=== PATIENT | female | born 1980 | race Caucasian/White ===

== ENCOUNTER → 2016-06-22 | Outpatient (CLI) | payer OTHER ==
[~2016-06-22] MED LIST: FLEXERIL10 MG PO; KEFLEX500 MG PO; KENALOG,ARISTOC80 G1 TP; LISINOPRIL20 MG PO; MEDROL DOSEPAK4 MG PO; METFORMIN HCL500 MG PO; MOTRIN800 MG PO; PERCOCET 10/1 TABLET PO; PERCOCET 5/31 TABLET PO; SKELAXIN800 MG PO; VALIUM2 MG PO
== END | disposition home or self-care (01) ==
DX: R13.14 Dysphagia, pharyngoesophageal phase (principal)
CPT/HCPCS: 92611 GN

== ENCOUNTER 2016-07-16 00:39 | Emergency (ER) | payer OTHER ==
[~2016-07-16] VITALS: Ht 154.9 cm; Wt 123.9 kg
[2016-07-16] MEDS ORDERED: CLEOCIN300 MG PO (01:01)
[2016-07-16 01:12] VITALS: BP 129/97
== END 2016-07-16 01:01 | disposition home or self-care (01) ==
LOC: EXP 00:39 → EME 00:39 → EXP 01:01
DX: J34.0 Abscess, furuncle and carbuncle of nose (principal); E11.9 Type 2 diabetes mellitus without complications; Z79.84 Long term (current) use of oral hypoglycemic drugs
CPT/HCPCS: 99281; 99283

== ENCOUNTER 2016-08-11 17:46 | Emergency (ER) | payer OTHER ==
[~2016-08-11] VITALS: Ht 154.9 cm; Wt 116.8 kg
[~2016-08-11 17:46] MED LIST changes: +CLEOCIN300 MG PO
[2016-08-11 18:34] LABS: ADD MIUA? YES; BILIRUBIN NEGATIVE; BLOOD NEGATIVE; COLOR YELLOW ((YELLOW)); GLUCOSE (STRIP) NEGATIVE; INTERNAL CONTROL VALID? YES; KETONES 5; LEUKOCYTES TRACE; NITRITE NEGATIVE; PROTEIN (STRIP) NEGATIVE; SPECIFIC GRAVITY 1.027 (1.000-1.030); UROBILINOGEN 0.2 MG/DL (0.2-1.0)
[2016-08-11 18:42] LABS: BACTERIA NONE SEEN /HPF; CALCIUM OXALATE CRYSTALS 2+ /HPF; EPITHELIAL CELLS RARE /HPF; MUCUS 1+ /LPF; UCUL ADDED? NO; WHITE BLOOD CELLS 0-5 /HPF (0-5)
[2016-08-11 20:29] LABS: HEMATOCRIT 34.3 % (36.0-46.0); MCH 25.2 PG (29.0-34.0); MCHC 31.5 G/DL (30.0-36.0); MCV 80.1 FL (83-99); MEAN PLAT.VOLUME 10.3 uM^3 (9.5-12.4); PLATELET COUNT 277 K/uL (156-360); RBC DIS.WIDTH-CV 14.1 % (11.8-14.6); RBC DIS.WIDTH-SD 40.6 % (39-53); RED BLOOD COUNT 4.28 M/uL (3.80-5.20); WHITE BLOOD COUNT 7.2 K/uL (4.1-10.2)
[2016-08-11 20:37] LABS: CHLORIDE 112 mEq/L (99-109); POTASSIUM 3.6 mEq/L (3.7-5.4); SODIUM 140 mEq/L (136-147)
[2016-08-11 20:39] LABS: GLUCOSE 100 mg/dL (70-99)
[2016-08-11 20:40] LABS: ANION GAP 9 MEQ/L (2-14)
[2016-08-11 20:41] LABS: TOTAL BILIRUBIN 0.3 mg/dL (0.0-1.0)
[2016-08-11 20:43] LABS: ALKALINE PHOSPHATASE 80 IU/L (3-129); GFR ESTIMATE (CALCULATED) > 59 mL/min/
[2016-08-11 20:44] LABS: UREA NITROGEN (BUN) 11 mg/dL (9-23)
[2016-08-11] MEDS ORDERED: FLOMAX0.4 MG PO (21:41)
[2016-08-11] MEDS ORDERED: PERCOCET 5/31 TABLET PO (21:41)
[2016-08-11] MEDS ORDERED: ZOFRAN ODT4 MG PO (21:41)
[2016-08-11 21:52] VITALS: BP 132/94
== END 2016-08-11 21:57 | disposition home or self-care (01) ==
LOC: RME 17:46 → EME 17:46 → RME 21:57
PROVIDERS: Physician Assistant
DX: N20.1 Calculus of ureter (principal); R93.5 Abnormal findings on diagnostic imaging of other abdominal regions, including retroperitoneum; E11.9 Type 2 diabetes mellitus without complications; I10 Essential (primary) hypertension; Z79.84 Long term (current) use of oral hypoglycemic drugs
CPT/HCPCS: 74176; 80053; 81003; 84703; 85027; 99281; 99284

== ENCOUNTER 2016-10-16 01:18 | Emergency (ER) | payer OTHER ==
[~2016-10-16] VITALS: Ht 152.4 cm; Wt 115.3 kg
[~2016-10-16 01:18] MED LIST changes: +FLOMAX0.4 MG PO; +ZOFRAN ODT4 MG PO
[2016-10-16 03:07] LABS: EOSINOPHIL (%) 1.7 % (0-5); EOSINOPHIL COUNT 0.1 K/uL (0-0.3); HEMATOCRIT 28.8 % (36.0-46.0); IMMATURE GRANULOCYTE (%) 0.3 % (0.0-0.7); INSTRUMENT ABS NEUTROPHIL CT 3.9 K/uL; LYMPHOCYTE COUNT 2.6 K/uL (1.0-2.8); MCHC 30.6 G/DL (30.0-36.0); MCV 78.5 FL (83-99); MEAN PLAT.VOLUME 9.8 uM^3 (9.5-12.4); MONOCYTE (%) 6.8 % (3-12); MONOCYTE COUNT 0.5 K/uL (0-0.8); NEUTROPHIL (%) 54.9 % (45-76); NEUTROPHIL COUNT 3.9 K/uL (1.8-6.4); PLATELET COUNT 280 K/uL (156-360); RBC DIS.WIDTH-CV 14.9 % (11.8-14.6); RBC DIS.WIDTH-SD 42.3 % (39-53); RED BLOOD COUNT 3.67 M/uL (3.80-5.20); WHITE BLOOD COUNT 7.2 K/uL (4.1-10.2)
[2016-10-16 03:18] LABS: CHLORIDE 107 mEq/L (99-109); POTASSIUM 3.2 mEq/L (3.7-5.4); SODIUM 138 mEq/L (136-147)
[2016-10-16 03:20] LABS: GLUCOSE 135 mg/dL (70-99)
[2016-10-16 03:22] LABS: ANION GAP 9 MEQ/L (2-14); TOTAL BILIRUBIN 0.2 mg/dL (0.0-1.0)
[2016-10-16 03:24] LABS: ALKALINE PHOSPHATASE 86 IU/L (3-129); GFR ESTIMATE (CALCULATED) > 59 mL/min/
[2016-10-16 03:25] LABS: UREA NITROGEN (BUN) 12 mg/dL (9-23)
[2016-10-16 03:26] LABS: DIRECT BILIRUBIN 0.1 mg/dL (0.0-0.3)
[2016-10-16 03:28] LABS: LIPASE 8 U/L (1.0-51.0)
[2016-10-16 03:34] LABS: QUANTITATIVE HCG < 4.0 MIU/ML
[2016-10-16 04:35] LABS: ADD MIUA? YES; BILIRUBIN NEGATIVE; BLOOD MODERATE; COLOR YELLOW ((YELLOW)); GLUCOSE (STRIP) NEGATIVE; KETONES NEGATIVE; LEUKOCYTES MODERATE; NITRITE POSITIVE; PROTEIN (STRIP) 30; SPECIFIC GRAVITY 1.023 (1.000-1.030); UROBILINOGEN 0.2 MG/DL (0.2-1.0)
[2016-10-16 05:10] LABS: EPITHELIAL CELLS 3+ /HPF; RED BLOOD CELLS 0-5 /HPF (0-5)
[2016-10-16 05:11] LABS: BACTERIA 4+ /HPF; MUCUS NONE SEEN /LPF; UCUL ADDED? YES
[2016-10-16] MEDS ORDERED: TRAMADOL HCL50 MG PO (06:27)
[2016-10-16] MEDS ORDERED: BACTRIM,SEPT1 TABLET PO (06:27)
[2016-10-16 06:39] VITALS: BP 144/72
[2016-10-16 11:34] LABS: CHLAMYDIA TRACHOMATIS NEGATIVE; NEISSERIA GONORRHOEAE NEGATIVE
== END 2016-10-16 06:38 | disposition home or self-care (01) ==
LOC: EME 01:18
PROVIDERS: Emergency Medicine
DX: N10 Acute pyelonephritis (principal); N70.11 Chronic salpingitis; I10 Essential (primary) hypertension; E11.9 Type 2 diabetes mellitus without complications; Z79.84 Long term (current) use of oral hypoglycemic drugs; K21.9 Gastro-esophageal reflux disease without esophagitis; Z87.442 Personal history of urinary calculi; Z98.51 Tubal ligation status
CPT/HCPCS: 74176; 76856; 80048; 80076; 81003; 83690; 84702; 85025; 87077; 87086; 87186; 87210; 87491; 87591; 99281; 99284

== ENCOUNTER 2016-11-21 13:39 | Emergency (ER) | payer OTHER ==
[~2016-11-21] VITALS: Ht 152.4 cm; Wt 112.9 kg
[~2016-11-21 13:39] MED LIST changes: +BACTRIM,SEPT1 TABLET PO; +TRAMADOL HCL50 MG PO
[2016-11-21 17:53] LABS: CHLORIDE 109 mEq/L (99-109); POTASSIUM 3.6 mEq/L (3.7-5.4); SODIUM 138 mEq/L (136-147)
[2016-11-21 17:55] LABS: D-DIMER ELISA < 150.00 ng/mLDDU (<230); GLUCOSE 86 mg/dL (70-99)
[2016-11-21 17:56] LABS: ANION GAP 8 MEQ/L (2-14)
[2016-11-21 17:59] LABS: GFR ESTIMATE (CALCULATED) > 59 mL/min/
[2016-11-21 18:00] LABS: UREA NITROGEN (BUN) 11 mg/dL (9-23)
[2016-11-21 18:02] LABS: HEMATOCRIT 31.7 % (36.0-46.0); MCH 23.7 PG (29.0-34.0); MCHC 30.6 G/DL (30.0-36.0); MCV 77.3 FL (83-99); MEAN PLAT.VOLUME 10.6 uM^3 (9.5-12.4); PLATELET COUNT 336 K/uL (156-360); RBC DIS.WIDTH-CV 15.1 % (11.8-14.6); RBC DIS.WIDTH-SD 42.1 % (39-53); WHITE BLOOD COUNT 8.1 K/uL (4.1-10.2)
[2016-11-21] MEDS ORDERED: NAPROXEN500 MG PO (18:45)
[2016-11-21 19:08] VITALS: BP 123/88
== END 2016-11-21 19:08 | disposition home or self-care (01) ==
LOC: EME 13:39
PROVIDERS: Physician Assistant
DX: M79.662 Pain in left lower leg (principal); I10 Essential (primary) hypertension; E11.9 Type 2 diabetes mellitus without complications; Z79.84 Long term (current) use of oral hypoglycemic drugs; K21.9 Gastro-esophageal reflux disease without esophagitis; Z98.51 Tubal ligation status
CPT/HCPCS: 80048; 85027; 85379; 99281; 99283

== ENCOUNTER 2017-01-02 20:00 | Emergency (ER) | payer OTHER ==
[~2017-01-02] VITALS: Ht 154.9 cm; Wt 114.8 kg
[~2017-01-02 20:00] MED LIST changes: +NAPROXEN500 MG PO
[2017-01-02 20:28] LABS: HEMATOCRIT 29.5 % (36.0-46.0); MCH 22.4 PG (29.0-34.0); MCHC 29.5 G/DL (30.0-36.0); MCV 75.8 FL (83-99); MEAN PLAT.VOLUME 9.7 uM^3 (9.5-12.4); PLATELET COUNT 361 K/uL (156-360); RBC DIS.WIDTH-CV 16.7 % (11.8-14.6); RBC DIS.WIDTH-SD 45.6 % (39-53); RED BLOOD COUNT 3.89 M/uL (3.80-5.20)
[2017-01-02 20:37] LABS: CHLORIDE 109 mEq/L (99-109); SODIUM 137 mEq/L (136-147)
[2017-01-02 20:39] LABS: GLUCOSE 104 mg/dL (70-99)
[2017-01-02 20:40] LABS: ANION GAP 5 MEQ/L (2-14)
[2017-01-02 20:42] LABS: GFR ESTIMATE (CALCULATED) > 59 mL/min/
[2017-01-02 20:43] LABS: UREA NITROGEN (BUN) 7 mg/dL (9-23)
[2017-01-02 20:48] LABS: TROP-I INTERPRETATION NEGATIVE; TROPONIN-I < 0.01 ng/mL (0.0-0.30)
[2017-01-02] MEDS ORDERED: ROBITUSSIN AC,T10 ML PO (21:39)
[2017-01-02] MEDS ORDERED: MEDROL DOSEPAK4 MG PO (21:39)
[2017-01-02] MEDS ORDERED: VENTOLIN HFA18 GM IH (21:39)
[2017-01-02 21:49] VITALS: BP 133/83
== END 2017-01-02 21:54 | disposition home or self-care (01) ==
LOC: EME 20:00
DX: J20.9 Acute bronchitis, unspecified (principal); D64.9 Anemia, unspecified; I10 Essential (primary) hypertension; E11.9 Type 2 diabetes mellitus without complications; K21.9 Gastro-esophageal reflux disease without esophagitis; Z79.84 Long term (current) use of oral hypoglycemic drugs
CPT/HCPCS: 71020; 80048; 84484; 85027; 93005; 94640; 99281; 99284; J7512

== ENCOUNTER 2017-04-07 20:34 | Emergency (ER) | payer OTHER ==
[~2017-04-07] VITALS: Ht 154.9 cm; Wt 125.4 kg
[~2017-04-07 20:34] MED LIST changes: +ROBITUSSIN AC,T10 ML PO; +VENTOLIN HFA18 GM IH
[2017-04-07 20:57] LABS: APPEARANCE SL.HAZY ((CLEAR)); BILIRUBIN NEGATIVE; BLOOD NEGATIVE; COLOR YELLOW ((YELLOW)); GLUCOSE (STRIP) NEGATIVE; KETONES NEGATIVE; LEUKOCYTES TRACE; NITRITE NEGATIVE; PROTEIN (STRIP) NEGATIVE; SPECIFIC GRAVITY 1.024 (1.000-1.030); UROBILINOGEN 0.2 MG/DL (0.2-1.0)
[2017-04-07 21:00] LABS: BACTERIA RARE /HPF; EPITHELIAL CELLS 1+ /HPF; MUCUS TRACE /LPF; RED BLOOD CELLS 0-5 /HPF (0-5); UCUL ADDED? YES
[2017-04-07] MEDS ORDERED: FLAGYL500 MG PO (22:53)
[2017-04-07] MEDS ORDERED: DIFLUCAN150 MG PO (22:53)
[2017-04-07 22:58] LABS: SOURCE SWAB
[2017-04-07 23:08] VITALS: BP 121/78
== END 2017-04-07 23:13 | disposition home or self-care (01) ==
LOC: EME 20:34
PROVIDERS: Physician Assistant
DX: N89.8 Other specified noninflammatory disorders of vagina (principal); E11.9 Type 2 diabetes mellitus without complications; Z79.84 Long term (current) use of oral hypoglycemic drugs; I10 Essential (primary) hypertension; K21.9 Gastro-esophageal reflux disease without esophagitis; Z98.51 Tubal ligation status; Z87.442 Personal history of urinary calculi
CPT/HCPCS: 81003; 87077; 87086; 87186; 87210; 87491; 87591; 99281; 99284

== ENCOUNTER 2017-08-17 01:11 | Emergency (ER) | payer OTHER ==
[~2017-08-17] VITALS: Ht 162.6 cm; Wt 123.6 kg
[~2017-08-17 01:11] MED LIST changes: +DIFLUCAN150 MG PO; +FLAGYL500 MG PO
[2017-08-17 02:21] LABS: HEMATOCRIT 36.2 % (36.0-46.0); HEMOGLOBIN 12.5 G/DL (11.9-15.5); MCH 30.4 PG (29.0-34.0); MCHC 34.5 G/DL (30.0-36.0); MCV 88.1 FL (83-99); PLATELET COUNT 281 K/uL (156-360); RBC DIS.WIDTH-CV 12.4 % (11.8-14.6); RBC DIS.WIDTH-SD 39.6 % (39-53); RED BLOOD COUNT 4.11 M/uL (3.80-5.20); WHITE BLOOD COUNT 6.9 K/uL (4.1-10.2)
[2017-08-17 02:38] LABS: ALBUMIN 4.1 g/dL (3.2-4.8); CHLORIDE 106 mEq/L (99-109); POTASSIUM 3.3 mEq/L (3.7-5.4); SODIUM 141 mEq/L (136-147)
[2017-08-17 02:41] LABS: GLUCOSE 138 mg/dL (70-99); TOTAL PROTEIN 7.2 g/dL (6.4-8.3)
[2017-08-17 02:42] LABS: TOTAL BILIRUBIN 0.3 mg/dL (0.0-1.0)
[2017-08-17 02:44] LABS: CREATININE 0.8 mg/dL (0.6-1.3); GFR ESTIMATE (CALCULATED) > 59 mL/min/; SERUM ETHYL ALCOHOL 153 mg/dL
[2017-08-17 02:45] LABS: ALKALINE PHOSPHATASE 79 IU/L (3-129)
[2017-08-17 02:46] LABS: AST (GOT) 14 IU/L (2-34); UREA NITROGEN (BUN) 11 mg/dL (9-23)
[2017-08-17 02:48] LABS: ACETAMINOPHEN (TYLENOL) < 10 mcg/mL (10-30); ALT (GPT) 12 IU/L (3-49); SALICYLATE < 5.0 MG/DL (15-30)
[2017-08-17 02:49] LABS: LIPASE 8 U/L (1.0-51.0)
[2017-08-17 03:48] LABS: QUANTITATIVE HCG < 4.0 MIU/ML
[2017-08-17] MEDS ORDERED: ZOFRAN4 MG PO (04:20)
[2017-08-17 04:56] LABS: APPEARANCE CLEAR ((CLEAR)); BILIRUBIN NEGATIVE; BLOOD NEGATIVE; COLOR STRAW ((YELLOW)); GLUCOSE (STRIP) NEGATIVE; KETONES NEGATIVE; LEUKOCYTES NEGATIVE; NITRITE NEGATIVE; PROTEIN (STRIP) NEGATIVE; SPECIFIC GRAVITY 1.012 (1.000-1.030); UCUL ADDED? NO; UROBILINOGEN 0.2 MG/DL (0.2-1.0)
[2017-08-17 05:08] LABS: AMPHETAMINE PRESUMPTIVE POSITIVE (500 ng/mL); BARBITURATES NEGATIVE (200 ng/mL); BENZODIAZEPINES PRESUMPTIVE POSITIVE (150 ng/mL); BUPRENORPHINE NEGATIVE (10 ng/mL); COCAINE NEGATIVE (150 ng/mL); METHADONE NEGATIVE (200 ng/mL); METHAMPHETAMINE NEGATIVE (500 ng/mL); OPIATES (MORPHINE) NEGATIVE (100 ng/mL); OXYCODONE NEGATIVE (100 ng/mL); PHENCYCLIDINE NEGATIVE (25 ng/mL); PROPOXYPHENE NEGATIVE (300 ng/mL); THC CANNABINOIDS NEGATIVE (50 ng/mL); TRICYCLIC ANTIDEPRESSANTS NEGATIVE (300 ng/mL)
[2017-08-17 05:22] VITALS: BP 119/75
[2017-08-17 05:52] LABS: BENZODIAZEPINES, URINE SCREEN Negative (200 ng/mL)
== END 2017-08-17 05:25 | disposition home or self-care (01) ==
LOC: EME 01:11
PROVIDERS: Emergency Medicine
DX: F10.129 Alcohol abuse with intoxication, unspecified (principal); R11.2 Nausea with vomiting, unspecified; E87.6 Hypokalemia; Y90.6 Blood alcohol level of 120-199 mg/100 ml; I10 Essential (primary) hypertension; E11.9 Type 2 diabetes mellitus without complications; Z79.84 Long term (current) use of oral hypoglycemic drugs; Z87.442 Personal history of urinary calculi; Z98.51 Tubal ligation status
CPT/HCPCS: 80053; 81003; 83690; 84702; 84999; 85027; 99281; 99285; G0480; J2405; J3480; J7030; S0028